=== PATIENT | female | born 1945 | race Caucasian/White ===

== ENCOUNTER → 2016-08-07 | Outpatient (CLI) | payer MEDICARE, OTHER ==
[~2016-08-07] MED LIST: ACEPHEN650 MG RC; ACETAMINOPHEN PO; ACETAMINOPHEN650 M1 PO; ACTOS15 MG PO; ADVAIR 5001 DISK W/D PO; AIRBORNE TABLE1 EAC1 PO; ALBUTEROL MININEB; ALBUTEROL MININEB NEB; ALBUTEROL17 G1 IH; ALBUTEROL2.5 MG/0.5 IH; ALPRAZOLAM ER1 MG PO; ALPRAZOLAM PO; ALPRAZOLAM0.5 MG PO; ALPRAZOLAM1 MG PO; AMITIZA24 MCG PO; ANTIOXIDANT PO; ARICEPT5 M1 PO; ASPIRIN PO; ASPIRIN81 M1 PO; ASPIRIN81 MG PO; ASTELIN137 MCG INH; ASTEPRO205.5 MCG/; ASTEPRO205.5 MCG/ INH; AUGMENTIN PO; AZELASTINE137 MCG/0. INH; AZELASTINE137 MCG/0. NS; BIOTENE1000 ML PO; CALCIUM + VITAM1 TAB PO; CALCIUM 1,0001 EACH PO; CALCIUM 500 +1 EAC2 PO; CALCIUM 600 +1 EAC4 PO; CARAFATE1 G PO; CARAFATE1 GM PO; CELEBREX PO; CENTRUM SILVER PO; CIPRO PO; CLONIDINE HCL0.1 MG PO; CLONIDINE PO; COMBIVENT INH14.7 G1 IH; COMBIVENT U/D3 M2 INH; COMBIVENT U/D3 ML INH; CYANOCOBALAM1000 MCG PO; CYANOCOBALAM1000 MCG PO/SL; DETROL PO; DIFLUCAN100 MG PO; DILAUDID2 MG PO; DILAUDID4 MG PO; DIOVAN HCT 160-1 TAB PO; DIOVAN HCT 160/1 TAB PO; DIOVAN HCT 1601 EACH PO; DIOVAN160 MG PO; DITROPAN PO; DITROPAN5 MG PO; DONEPEZIL HCL10 MG PO; DUONEB 2.5-0.5 M3 ML NEB; ECHINACEA125 M1 PO; EFFEXOR PO; EFFEXOR XR PO; EFFEXOR XR150 MG PO; EFFEXOR-XR150 MG PO; ENABLEX15 MG PO; FAMOTIDINE PO; FERRO-TIME325 MG PO; FISH OIL 1,0001 CAP PO; FISH OIL 1,001000 MG PO; FLEXERIL10 MG PO; FLOMAX0.4 M1 PO; FLOVENT DI50 MCG/DIS IH; GABAPENTIN300 M2 PO; GABAPENTIN300 MG PO; GLUCOTROL XL PO; HUMIBID-LA600 MG PO; HYDROCODON-ACE1 EAC4 PO; HYDROCODON-ACE1 EAC9 PO; KCL PO; KEFLEX250 M3 PO; LANSOPRAZOLE30 M3 PO; LASIX PO; LASIX20 MG PO; LEVAQUIN PO; LEXAPRO; LIDOCAINE TOP; LOPRESSOR PO; LORTAB 7.5-5001 TAB; LORTAB 7.5-5001 TAB PO; MAALOX SUSPENSI30 ML PO; MARINOL2.5 MG PO; MEMANTINE HCL10 MG PO; METFORMIN HCL500 M1 PO; METOPROLOL TAR25 MG PO; METOPROLOL TART25 MG PO; MICONAZOLE TOP; MIRALAX17 G2 PO; MIRALAX17 GM PO; MULTI VITAMIN1 EACH PO; MULTI-DAY VITAM1 TAB PO; MULTIVITAMIN W-1 TAB PO; NAMENDA10 MG PO; NEURONTIN100 MG PO; NEXIUM PO; NEXIUM20 MG PO; NILSTAT PO; NITROFURANTOIN100 M3 PO; NYSTATIN5 ML PO; OMEGA 3 FISH OI1 CAP PO; OMEPRAZOLE20 M2 PO; ONDANSETRON HCL4 M1 PO; ONDANSETRON HCL4 MG PO; ONDANSETRON4 MG/TAB PO; OXYGEN; PEPCID AC20 MG PO; PHENERGAN25 MG PO; PILOCARPINE HC7.5 MG PO; POTASSIUM CHLO10 ME1 PO; POTASSIUM CHLO10 MEQ PO; PRAVASTATIN SOD40 MG PO; PREDNISONE PO; PREDNISONE10 MG PO; PREDNISONE10 MG/DOSE PO; PRILOSEC PO; PRILOSEC20 M1 PO; PROAIR HFA8.5 GM; PROAIR HFA8.5 GM IH; PROTONIX PO; PROVIGIL PO; PROVIGIL100 MG PO; PULMICORT0.25 MG/2; PULMICORT0.25 MG/2 IH; REGLAN PO; REGLAN10 MG PO; SIMVASTATIN10 MG PO; SINGULAIR PO; SPIRIVA18 MCG; SYMBICORT INH; SYMBICORT80 INH; TAMIFLU75 M1 PO; TOPROL XL PO; TOPROL XL200 MG PO; TRAMADOL HCL50 M1 PO; TURMERIC PO; TYLENOL325 M1 PO; VALTURNA 300-321 TAB PO; VENLAFAXINE HC150 M1 PO; VENLAFAXINE HC150 MG PO; VICODIN ES 7.51 EAC1 PO; VICODIN PO; VITAMIN B 12 PO; VITAMIN D3 1,01 EACH PO; VITAMIN D31000 UNIT PO; XANAX0.5 MG PO; ZANTAC; ZITHROMAX PO; ZOFRAN PO; ZOVIRAX15 GM TOP; [UNRECOGNIZED DRUG - OTHER]; [UNRECOGNIZED DRUG - OTHER] PO; [UNRECOGNIZED DRUG - OTHER] PO; [UNRECOGNIZED DRUG - REMARK]; [UNRECOGNIZED DRUG - REMARK] PO
--- NOTE | ~2016-08-07 | XA148 ---
[facility] A Service of [facility] RADIOLOGY TEXT RESULTS PATIENT: BASSAM SORIA LOCATION: CIVR : 45 UNIT #: [id number] AGE: [address]: David Pearson MD SEX: F ORDER DR: [id number] [facility] [address] [facility]. [place], [place] [address] [id number] O MR#: [id number] Acc #: [id number] NAME: BASSAM SROIA. : 1945 SEX: F STUDY DATE/TIME: 08/07/2016 8:29 UNIT: [facility] ROOM: STUDY DESCRIPTION: XA Kyphoplasty Lumbar Attending Physician: David Pearson M.D. Referring Physician: David Pearson M.D. Ordering Physician: David Pearson M.D. Primary Care Physician: Blanca Baumann A.P.R.N. MEDICAL IMAGING REPORT This report is preliminary unless electronic signature is present EXAM Fluoroscopically guided L5 kyphoplasty INDICATION Ms. Soria is a 70-year-old lady who has a history of compression fracture. This was noted on the an MRI from June 25, 2016. She has persistent pain with conservative therapy and in fact has had multiple prior kyphoplasties. She has been referred for kyphoplasty today. FINDINGS The procedure was explained to the patient including risks, benefits, potential complications and potential for alternative forms of treatment. Informed consent was obtained and prior to initiating the procedure a formal time-out procedure was performed. Monitored anesthesia care was induced due to this patient's baseline oxygen requirements. She was placed prone on the angiographic table. Using all elements of maximal sterile barrier technique including hand hygiene, caps, sterile gowns, gloves and masks the back was prepped with 2% Chlorhexidine for cutaneous antisepsis and covered with a large sterile sheet. Initial fluoroscopic image was obtained, and the L5 pedicles were localized. The skin and subcutaneous tissues overlying the left L5 pedicle were anesthetized with buffered lidocaine and bupivacaine. Kyphoplasty cannula was advanced through the left L5 pedicle into the vertebral body under fluoroscopic guidance. At this point I turned my attention to the right pedicle of L5. Again skin and subcutaneous tissues were anesthetized with buffered lidocaine and bupivacaine. An additional cannula was advanced down the right L5 pedicle and into the vertebral body. Final images did show appropriate positioning of the cannulas. Balloons were advanced through the cannulas and were inflated under fluoroscopic guidance. At this point the balloons were removed and cement was applied under fluoroscopic guidance. At this point both cannulas were removed. Manual pressure was applied until hemostasis was obtained. Patient did have some cement extending along the right pedicle along the cannula tract. I do not see [facility]. [facility] A Service of [facility] RADIOLOGY TEXT RESULTS PATIENT: BASSAM SORIA LOCATION: [facility] : 45 UNIT #: [id number] AGE: [address]: David Pearson MD SEX: F ORDER DR: any evidence of contrast extravasation into the disc space or spinal canal. Patient tolerated the procedure well and there were no immediate complications. The patient was awakened from anesthesia and transferred to the recovery area. Total fluoroscopy was 5.6 minutes. AK was 351 mGy. IMPRESSION Technically successful fluoroscopically guided L5 kyphoplasty as noted above. Fluoroscopy was used during the procedure and permanent images were saved. Dictated by... Nova Azul M.D. THIS IS AN ELECTRONICALLY VERIFIED REPORT Nova Azul M.D. at 08/11/2016 4:43 PM DANIELLE/maty TD: 08/11/2016 11:34 JOB #: [id number] MEDICAL IMAGING REPORT COPY
[2016-08-07 07:41] LABS: HEMATOCRIT 33.7 % (35.0-45.0); HEMOGLOBIN 11.2 gm/dL (12.0-16.0); MEAN CELL VOLUME 101.2 FL (83-96); MEAN CORPUSCULAR HEMOGLOBIN 33.5 PG (28-34); MEAN CORPUSCULAR HGB CONC 33.1 g/dL (30-36); MEAN PLATELET VOLUME 7.5 FL (6.5-11.5); RED BLOOD COUNT 3.33 X10e (3.90-5.30); RED CELL DISTRIBUTION WIDTH 12.7 % (11.0-15.5); WHITE BLOOD COUNT 7.7 X10e3 (4.0-10.5)
[2016-08-07 08:02] LABS: PROTHROMBIN TIME (PATIENT) 10.3 SECONDS (9.6-11.5)
== END | disposition home or self-care (01) ==
LOC: CIVR 07:08
PROVIDERS: Orthopaedic Surgery Orthopaedic Surgery of the Spine
DX: M80.88XA Other osteoporosis with current pathological fracture, vertebra(e), initial encounter for fracture (principal); J44.9 Chronic obstructive pulmonary disease, unspecified; Z99.81 Dependence on supplemental oxygen; K21.9 Gastro-esophageal reflux disease without esophagitis; E03.9 Hypothyroidism, unspecified; I50.9 Heart failure, unspecified; N39.3 Stress incontinence (female) (male); J45.909 Unspecified asthma, uncomplicated; Z85.118 Personal history of other malignant neoplasm of bronchus and lung; F17.200 Nicotine dependence, unspecified, uncomplicated
CPT/HCPCS: 36415; 85027; 85610; 85730; 88307; 88311; C1713; J0690; J2250; J3010; Q9967

== ENCOUNTER → 2016-09-01 | Outpatient (CLI) | payer MEDICARE, OTHER ==
--- NOTE | ~2016-09-01 | CT55 ---
[facility] A Service of [facility] RADIOLOGY TEXT RESULTS PATIENT: BASSAM SORIA LOCATION: [facility] : 45 UNIT #: [id number] AGE: [address]: Ryan Soria MD SEX: F ORDER DR: [id number] [address] [address] [id number] O MR#: [id number] Acc #: [id number] NAME: BASSAM SORIA : 1945 SEX: F STUDY DATE/TIME: 09/01/2016 11:48 UNIT: [facility] ROOM: STUDY DESCRIPTION: CT Chest W Con Attending Physician: Ryan Soria M.D. Referring Physician: Ryan Soria M.D. Ordering Physician: Ryan Soria M.D. Primary Care Physician: Blanca Baumann A.P.R.N. MEDICAL IMAGING REPORT This report is preliminary unless electronic signature is present. EXAM CT of the chest with contrast INDICATION 70-year-old female with followup lung cancer. TECHNIQUE CT of the chest was performed following the administration of IV contrast. Coronal and sagittal reformatted images were obtained. This CT exam was performed with one or more of the following radiation dose reduction techniques: automatic exposure control, adjustment of mA and/or kV according to patient size, and iterative reconstruction. COMPARISON 04/14/2016 FINDINGS Stable curvilinear densities in the left apex. Stable scarring in the medial left upper lobe adjacent to the mediastinum. Stable scarring in the right upper lobe. There is a 1.1 cm ground-glass rounded density in the left lower lobe on image 30 which has demonstrated some increase in size compared with the previous study. This is nonspecific however should be followed closely. There is some increased thickening of the mid esophagus. This is nonspecific. If the patient has received radiation therapy this may represent esophagitis. No pleural effusion or suspicious lymphadenopathy. Limited imaging of the upper abdomen is stable. Bone windows demonstrate prior vertebral augmentations. Stable sclerotic metastatic disease in T6. IMPRESSION 1. Stable presumed scarring in the left upper lobe. 2. There is a small 1.1 cm rounded ground-glass density in the left STS. [facility] A Service of [facility] RADIOLOGY TEXT RESULTS PATIENT: BASSAM SORIA LOCATION: [facility] : 45 UNIT #: [id number] AGE: [address]: Ryan Soria MD SEX: F ORDER DR: lower lobe which appears to be a slightly increased in size compared from the previous studies. Attention to this is recommended on followup studies and this should be followed closely given the patient's history of lung cancer. 3. There is increased thickening of the mid esophagus. This is nonspecific but if the patient has received radiation therapy. This could be due to radiation esophagitis. Dictated by... Huey Julio M.D. THIS IS AN ELECTRONICALLY VERIFIED REPORT Huey Julio M.D. at 09/02/2016 4:28 PM Qamar TD: 09/02/2016 09:30 JOB #: [id number] MEDICAL IMAGING REPORT Page 1 of 1
[2016-09-01 11:51] LABS: POC - CREATININE 0.86 mg/dL (0.44-1.03); POC - GFR >60.0 mL/min (>60)
== END | disposition home or self-care (01) ==
LOC: SCT 11:25
PROVIDERS: Internal Medicine Hematology
DX: C34.90 Malignant neoplasm of unspecified part of unspecified bronchus or lung (principal); M81.8 Other osteoporosis without current pathological fracture; J98.4 Other disorders of lung; K22.8 Other specified diseases of esophagus
CPT/HCPCS: 71260; 82565; Q9967

== ENCOUNTER → 2016-11-10 | Outpatient (CLI) | payer MEDICARE, OTHER ==
--- NOTE | ~2016-11-10 | CT55 ---
[facility] A Service of [facility] RADIOLOGY TEXT RESULTS PATIENT: BASSAM SORIA LOCATION: [facility] : 45 UNIT #: [id number] AGE: [address]: Ryan Soria MD SEX: F ORDER DR: [id number] [address] [address] [id number] O MR#: [id number] Acc #: [id number] NAME: BASSAM SORIA. : 1945 SEX: F STUDY DATE/TIME: 11/10/2016 13:33 UNIT: [facility] ROOM: STUDY DESCRIPTION: CT Chest W Con Attending Physician: Ryan Soria M.D. Referring Physician: Ryan Soria M.D. Ordering Physician: Ryan Soria M.D. Primary Care Physician: Blanca Baumann A.P.R.N. MEDICAL IMAGING REPORT This report is preliminary unless electronic signature is present. EXAM CT chest with contrast DATE 11/10/2016 HISTORY Physician's order states malignant neoplasm of unspecified bronchus or lung, other osteoporosis. Patient's history states 3-month followup spot on lung. Left lower quadrant abdominal pain for years. COMPARISON CT chest 08/12/2016. PROCEDURE 5 mm axial images through the chest after IV contrast administration. Sagittal and coronal reformatted images were obtained. This CT exam was performed with one or more of the following radiation dose reduction techniques: automatic control, adjustment of mA and/or kV according to patient size, and iterative reconstruction. FINDINGS Paramediastinal fibrosis with traction bronchiectasis demonstrated in the bilateral upper lobes and within the superior left lower lobe, with pleural thickening in the superior medial left mid chest, unchanged from prior examination. This may represent sequelae of previous radiation therapy. There is curvilinear scarring in the anterior left apex, unchanged. Bilobed ground-glass nodular density in the left lower lobe, each component measuring up to 1.1 cm, unchanged from the 09/01/2016, but larger than on the 08/05/2015 examination where the more cephalad component measured only 9 mm, and the inferior component measured 8 mm. Approximately 7 mm noncalcified nodular density in the superior right lower lobe medially (series 7 image 22) is unchanged from the prior STS. [facility] A Service of [facility] & [facility] RADIOLOGY TEXT RESULTS PATIENT: BASSAM SORIA LOCATION: [facility] : 45 UNIT #: [id number] AGE: [address]: Ryan Soria MD SEX: F ORDER DR: examination but is a new finding since 08/05/2015. Heterogeneous 2 cm left thyroid nodule is unchanged from 09/30/2015. It has substernal extension of the superior mediastinum, unchanged. There is mild concentric thickening in the mid thoracic esophagus which is unchanged from previous examination, could represent changes related to radiation esophagitis. Small esophageal hiatal hernia is demonstrated. Low-density lesion in the upper splenic pole measures nearly 2.4 cm is unchanged from 09/30/2015, in keeping with benign finding such as a cyst or hemangioma. Incompletely imaged low-density lesion in the posterolateral right [id number]-tl-owsbh renal pole (Hounsfield units 11.5) measuring 1.6 cm, compatible with a cyst. Adrenal glands appear normal. Old compression fractures of T8, L2 and L3 with vertebroplasty change. Chronic sclerosis of the T6 vertebral body likely representing site of previous metastatic disease, unchanged. Multiple old left rib fractures. No new osseous abnormalities are identified. IMPRESSION 1. A 7 mm nodule is located superiorly within the right lower lobe, which only faintly be seen on 08/31/2016, but is a new finding since April 2016. Metastatic disease cannot be excluded. It is too small to resolve with a PET technique and too small for percutaneous biopsy. Continued short-term CT chest followup would be recommended. 2. Curvilinear area of scarring in the anterior left lung apex thought to represent site of previous treated disease, stable. 3. Paramediastinal fibrosis changes in the bilateral upper lobes and left lower lobe, unchanged. 4. Bilobed ground-glass density in the central left lower lobe is unchanged from previous examination. However, it has slowly and gradually enlarged when compared to the more remote studies from 08/05/2015. As such, pulmonary metastatic disease cannot be completely excluded. Continued attention at surveillance imaging would be recommended. 5. Concentric thickening in the mid thoracic esophagus. Correlate clinically for radiation esophagitis. 6. Stable low-density left thyroid nodule. 7. Thoracic compression deformities, unchanged. Sclerotic features in T6 vertebral body unchanged from prior examination is consistent with previous site of osseous metastatic disease. No new osseous lesions. 8. Splenic cyst or hemangioma, right renal cyst, unchanged. Dictated by... Mindy Jimenez M.D. THIS IS AN ELECTRONICALLY VERIFIED REPORT Mindy Jimenez M.D. at 11/13/2016 8:39 AM [facility] A Service of [facility] RADIOLOGY TEXT RESULTS PATIENT: BASSAM SORIA LOCATION: [facility] : 45 UNIT #: [id number] AGE: [address]: Ryan Soria MD SEX: F ORDER DR: WILIAM/justine TD: 11/11/2016 19:55 JOB #: [id number] MEDICAL IMAGING REPORT Page 1 of 1
--- NOTE | ~2016-11-10 | CR7 ---
[facility] A Service of [facility] RADIOLOGY TEXT RESULTS PATIENT: BASSAM SORIA LOCATION: [facility] : 45 UNIT #: [id number] AGE: [address]: Ryan Soria MD SEX: F ORDER DR: [id number] [place] [address] [id number] O MR#: [id number] Acc #: [id number] NAME: BASSAM SORIA. : 1945 SEX: F STUDY DATE/TIME: 11/10/2016 13:23 UNIT: [facility] ROOM: STUDY DESCRIPTION: CR Abdomen Single AP View Attending Physician: Ryan Soria M.D. Referring Physician: Ryan Soria M.D. Ordering Physician: Ryan Soria M.D. Primary Care Physician: Blanca Baumann A.P.R.N. MEDICAL IMAGING REPORT This report is preliminary unless electronic signature is present. EXAM Abdomen, 11/10/2016 13:23 hours HISTORY 70-year-old woman with left lower quadrant abdominal pain for several years. COMPARISON CT abdomen, 04/14/2016 FINDINGS Supine view of the abdomen and cone view of the pelvis demonstrate a nonspecific bowel gas pattern without evidence of obstruction. There is diffuse osteopenia with kyphoplasty change at L2, L3, L4 and L5. There is hardware present in the left proximal femur. No definite fracture. IMPRESSION 1. Nonspecific bowel gas pattern with moderate amount of stool. 2. Multilevel kyphoplasty changes with profound, diffuse osteopenia. No acute fracture seen. Dictated by... Radha Medina M.D. THIS IS AN ELECTRONICALLY VERIFIED REPORT Radha Medina M.D. at 11/11/2016 5:50 PM John TD: 11/11/2016 15:00 JOB #: [id number] MEDICAL IMAGING REPORT [facility] A Service of [facility] RADIOLOGY TEXT RESULTS PATIENT: BASSAM SORIA LOCATION: [facility] #: [id number] : 45 UNIT #: [id number] AGE: [address]: Ryan Soria MD SEX: F ORDER DR: Page 1 of 1
[2016-11-10 13:35] LABS: POC - GFR >60.0 mL/min (>60)
== END | disposition home or self-care (01) ==
LOC: SCT 07:31
PROVIDERS: Internal Medicine Hematology
DX: C34.90 Malignant neoplasm of unspecified part of unspecified bronchus or lung (principal); M81.8 Other osteoporosis without current pathological fracture; M85.88 Other specified disorders of bone density and structure, other site; R91.1 Solitary pulmonary nodule; J98.4 Other disorders of lung; N28.1 Cyst of kidney, acquired; M43.9 Deforming dorsopathy, unspecified; Z98.890 Other specified postprocedural states
CPT/HCPCS: 71260; 74000; 82565; Q9967

== ENCOUNTER 2017-01-14 20:02 | Inpatient (IN) | payer MEDICARE, OTHER ==
[~2017-01-14] VITALS: Ht 144.8 cm; Wt 65.5 kg
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
--- NOTE | ~2017-01-14 | EKG ---
PATIENT: BASSAM SORIA UNIT #: [id number] Ventricular Rate: 104 BPM Atrial Rate: 104 BPM P-R Interval: 188 ms QRS Duration: 92 ms Q-T Interval: 352 ms QTC Calculation(Bezet): 462 ms P [place]: 79 degrees Calculated R [place]: 77 degrees Calculated T [place]: 79 degrees Diagnosis Line: Sinus tachycardia Diagnosis Line: Otherwise normal ECG Diagnosis Line: No previous ECGs available Diagnosis Line: Confirmed by ALEX DOWNEY MD ([id number]) on 01/15/2017 Diagnosis Line: 4:52:03 PM INTERPRETING MD: SHAYAN AMAYA
--- NOTE | ~2017-01-14 | CR72 ---
[facility] A Service of [facility] RADIOLOGY TEXT RESULTS PATIENT: BASSAM SORIA LOCATION: [facility] 338-01 : 45 UNIT #: [id number] AGE: [address]: Prince Muhammad MD SEX: F ORDER DR: [id number] [facility] [address] [facility]. [place], [place] [address] [id number] I MR#: [id number] Acc #: [id number] NAME: BASSAM SORIA. : 1945 SEX: F STUDY DATE/TIME: 01/14/2017 20:49 UNIT: [address] ROOM: [facility] STUDY DESCRIPTION: CR Chest Single View Portable Attending Physician: Prince Muhammad M.D. Ordering Physician: Killian Guzmán M.D. Primary Care Physician: Blanca Baumann A.P.R.N. MEDICAL IMAGING REPORT This report is preliminary unless electronic signature is present EXAM Frontal chest, 01/14/2017 INDICATION 71-year-old female with altered mental status, weakness, short of air with activity. Symptoms began 4 days ago. History of COPD, hypertension and lung cancer. TECHNIQUE Frontal chest compared with scanogram of CT performed 11/10/2016 and prior chest x-ray 07/18/2016. FINDINGS Aorta is tortuous. Cardiac silhouette is stable. Vascularity within normal limits. Lung volumes are low. There is old healed granulomatous disease. There is chronic appearing fibrosis and scarring in the suprahilar aspects of the lungs bilaterally, left greater than right. Underlying emphysema. No pneumothorax. There is evidence of prior vertebroplasty/kyphoplasty changes. IMPRESSION Chronic appearing lung changes. No definite superimposed active disease. Dictated by... Venkatesh Cote M.D. THIS IS AN ELECTRONICALLY VERIFIED REPORT Venkatesh Cote M.D. at 01/15/2017 11:28 AM JAVIER/tracy TD: 01/15/2017 03:41 [facility] A Service of [facility] RADIOLOGY TEXT RESULTS PATIENT: BASSAM SORIA LOCATION: [facility] 338-01 : 45 UNIT #: [id number] AGE: [address]: Prince Muhammad MD SEX: F ORDER DR: MERT #: [id number] MEDICAL IMAGING REPORT Page 1 of 1 COPY
--- NOTE | ~2017-01-14 | CT71 ---
[facility] A Service of [facility] RADIOLOGY TEXT RESULTS PATIENT: BASSAM SORIA LOCATION: [facility] : 45 UNIT #: [id number] AGE: [address]: Prince Muhammad MD SEX: F ORDER DR: [id number] [facility] [address] [facility]. [place], [place] [address] [id number] I MR#: [id number] Acc #: [id number] NAME: BASSAM SORIA. : 1945 SEX: F STUDY DATE/TIME: 01/14/2017 21:47 UNIT: [address] ROOM: [address] [place] [address] DESCRIPTION: CT Head Wo Contrast Attending Physician: Prince Muhammad M.D. Ordering Physician: Killian Guzmán M.D. Primary Care Physician: Blanca Baumann A.P.R.N. MEDICAL IMAGING REPORT This report is preliminary unless electronic signature is present EXAM Head CT, no contrast, 01/14/2017 PROCEDURE Axial unenhanced head CT. This CT exam was performed with one or more of the following radiation dose reduction techniques: automatic exposure control, adjustment of mA and/or kV according to patient size, and iterative reconstruction. COMPARISON Prior exam dated 01/06/2015. CLINICAL HISTORY One-day history of increasing confusion FINDINGS There is no intracranial hemorrhage or mass. There is volume loss and chronic white matter change, both increased when compared to the prior study. No acute intracranial abnormality is seen. Skull base and calvarium are unremarkable. IMPRESSION Chronic small vessel change and volume loss, showing progression since the study of 01/07/2012. However, no acute intracranial abnormality is seen. Dictated by... Lakhwinder Martinez M.D. THIS IS AN ELECTRONICALLY VERIFIED REPORT Lakhwinder Martinez M.D. at 01/22/2017 4:55 PM [facility] A Service [facility] RADIOLOGY TEXT RESULTS PATIENT: BASSAM SORIA LOCATION: [facility] 338 : 45 UNIT #: [id number] AGE: [address]: Prince Muhammad MD SEX: F ORDER DR: LAMONT/tracy TD: 01/15/2017 04:37 JOB #: [id number] MEDICAL IMAGING REPORT Page 1 of 1 COPY
--- NOTE | ~2017-01-14 | MR17 ---
[facility] A Service of [facility] RADIOLOGY TEXT RESULTS PATIENT: BASSAM SORIA LOCATION: [facility] 338-01 : 45 UNIT #: [id number] AGE: [address]: Prince Muhammad MD SEX: F ORDER DR: [id number] [facility] [address] [place], [place] [address] [id number] I MR#: [id number] #: [id number] NAME: BASSAM SORIA. : 1945 SEX: F STUDY DATE/TIME: 01/15/2017 17:59 UNIT: [address] ROOM: [facility] STUDY DESCRIPTION: MR Brain WWo Contrast Attending Physician: Prince Muhammad M.D. Ordering Physician: Betito Medina M.D. Primary Care Physician: Blanca Baumann A.P.R.N. MRI CENTER REPORT This report is preliminary unless electronic signature is present. EXAM Brain MRI with and without. HISTORY Increased confusion and weakness in this 71-year-old female since 01/14/2017. She has had headaches for 6 months with changes in mental status off and on and has a known history of lung cancer. COMMENTS MRI of the brain was performed prior to and following intravenous administration of 12 mL of MultiHance. Study is limited by patient motion and motion limiting sequences were utilized. There is comparison study from 05/03/2016. Midline structures are unremarkable. There is no evidence for a recent ischemic insult on the diffusion series. There is fairly extensive white matter signal abnormality most confluent in the deep periventricular white matter nonspecific, but likely due to small vessel disease. Lacunar type insults at the posterior left basal ganglia to bilateral thalami, chronic in appearance. Patchy signal abnormality in the bonilla. It is nonspecific, likely due to small vessel disease, also chronic in appearance. There is no extraaxial fluid collection. The major arterial intracranial flow voids are grossly maintained. Patient has had cataract surgery bilaterally. The visualized paranasal sinuses are clear. There is a small amount of fluid or inflammatory change in the right side mastoid air cells. There is mild generalized atrophy. There is no intracranial mass effect. Following contrast administration, there is no pathologic intracranial enhancement. IMPRESSION 1. Study is motion limited. 2. No evidence for intracranial metastatic disease. 3. No evidence for a recent ischemic insult. [facility] A Service of [facility] RADIOLOGY TEXT RESULTS PATIENT: BASSAM SORIA LOCATION: [facility] 338-01 : 45 UNIT #: [id number] AGE: [address]: Prince Muhammad MD SEX: F ORDER DR: 4. Again there is fairly extensive probable sequelae of small vessel disease and some generalized atrophy. Findings not appreciably changed from 05/03/2016. Preliminary wet reading provided by Dr. Jimenez, 18:50 on 01/15/2017. STAT * RESULT Dictated by... Larissa Rucker M.D. THIS IS AN ELECTRONICALLY VERIFIED REPORT Larissa Rucker M.D. at 01/16/2017 2:46 PM JOSIANE/shae TD: 01/16/2017 07:57 JOB #: [id number] MRI CENTER REPORT Page 1 of 1 COPY
--- NOTE | ~2017-01-14 | DS ---
Unit #: [id number] #: [id number] Patient: BASSAM SORIA [id number] [address] [address] [id number] I MR#: [id number] NAME: BASSAM SORIA. ROOM: 338 Age: 71 Sex: F Admission Date: 01/14/2017 : 1945 Discharge Date: 01/20/2017 Attending Physician: Prince Muhammad M.D. Primary Care Physician: Blanca Baumann A.P.R.N. DISCHARGE SUMMARY PRINCIPAL DISCHARGE DIAGNOSES 1. Acute diverticulitis. 2. Acute delirium. 3. Dementia. 4. Chronic obstructive pulmonary disease. 5. Hypertension. 6. Sinus tachycardia. 7. Type 2 diabetes mellitus. 8. Obstructive sleep apnea syndrome. 9. Overactive bladder. 10. Osteoporosis. 11. History of irritable bowel syndrome. 12. Coronary artery disease. 13. Major depressive disorder. 14. Gastroesophageal reflux disease. 15. History of small cell cancer of the lung. 16. Peripheral neuropathy. 17. Status post appendectomy. 18. Status post abdominal hernia repair. PROCEDURES PERFORMED None. CONSULTANTS Dr. Medina from neurology. Dr. Drake from [facility]. REASON FOR HOSPITALIZATION The patient is a 71-year-old white female with an extensive past medical history, chronic obstructive pulmonary disease, lung cancer, hypertension, tobacco use, type 2 diabetes mellitus, obstructive sleep apnea syndrome, overactive bladder, osteoporosis, irritable bowel syndrome, coronary artery disease, depression. She presented to the emergency room with hallucinations, mental status changes, lower abdominal pain, family suspecting urinary tract infection. On admission she was afebrile, tachycardic and blood pressure was somewhat low on admission. O2 saturations were good on 4 liters, which is her home dose. Random blood sugar was 167. CBC was normal except for hemoglobin of 11.4. CMP was normal except for a CO2 of 38 and random blood sugar 185. Alkaline phosphatase was 98, lactic acid was 1.7 and 0.8 on repeat. Cardiac enzymes normal. Urinalysis clear. Chest x-ray no active disease. CT scan of the head no active disease. CT scan of the abdomen acute diverticulitis. Sigmoid colon without complications, i.e. no perforation or abscess formation. Unit #: [id number] #: [id number] Patient: BASSAM SORIA [facility] COURSE The patient was admitted and placed on IV fluids, IV antibiotics and surgery and neurology were consulted. Accu-Cheks were obtained. Low-dose sliding scale insulin was instituted. Changes were made in her medications because of the confusion. Her clonidine was held because of low blood pressure and was eventually resumed. Her gabapentin was discontinued. She rapidly improved from the stand of diverticulitis as well as her confusion. Apparently she had run out of Xanax at home and could not get to the office to get it refilled. This was resumed while she was here. Additional labs were sent for confusion, mental status changes. Ammonia level was normal. PFTs were within normal limits. B12 and folic acid levels were within normal limits. ABGs on 4 liters showed a pH of 7.457, pCO2 of 49 and a PaO2 of 127. The patient's family approached us with senior care placement. Apparently she has a place at [facility]. They have been looking at [facility] as well. She will be discharged on O2 at 4 liters nasal cannula continuously. DIET Constant carb, healthy-heart diet. DISCHARGE MEDICATIONS 1. Flomax 0.4 mg at nighttime. 2. Lovenox 40 mg subcutaneous daily. 3. Effexor XR 150 mg daily. 4. Zofran 4 mg p.o. q.4 h. p.r.n. nausea. 5. Xanax 0.5 mg p.o. b.i.d. p.r.n. anxiety. 6. Dulera 200/5 two puffs q.12 h. 7. Lopressor 75 mg p.o. b.i.d. 8. Colace 100 mg p.o. b.i.d. 9. Namenda 10 mg p.o. b.i.d. 10. Aricept 10 mg p.o. at nighttime. 11. Ceclor 250 mg p.o. q.8 h. for an additional 4 days. 12. Furosemide 20 mg daily. 13. Astelin nasal spray b.i.d. 14. Zocor 10 mg at nighttime. 15. Catapres 2 mg p.o. t.i.d. 16. Medium dose NovoLog sliding scale. 17. Flagyl 500 mg p.o. t.i.d. for an additional 4 days. 18. Multivitamins 1 daily. 19. Protonix 40 mg b.i.d. 20. Os-Dontae 1 p.o. b.i.d. 21. KCL 20 mEq p.o. b.i.d. Dictated by... Prince Muhammad M.D. BELINDAK/suleman TD: 01/20/2017 08:32 JOB #: [id number] Unit #: [id number] #: [id number] Patient: BASSAM SORIA DISCHARGE SUMMARY Page 1 of 1 X Prince Muhammad MD X DISCHARGE SUMMARY
--- NOTE | ~2017-01-14 | CO ---
Unit #: [id number] #: [id number] Patient: BASSAM SORIA [id number] [facility] [address] [place] [address] [place], [place] [address] [id number] I MR#: [id number] NAME: BASSAM SORIA. ROOM: 338 Age: 71 Sex: F Admission Date: 01/14/2017 : 1945 Attending Physician: Prince Muhammad M.D. Primary Care Physician: Blanca Baumann A.P.R.N. CONSULTATION REPORT PRIMARY CARE PHYSICIAN Blanca Baumann A.P.R.N. REASON FOR CONSULTATION Mental status changes. PATIENT IDENTIFICATION This is a 71-year-old right handed female, evaluated in room 338 at [facility]. SOURCE OF INFORMATION Obtained from the patient as well as medical record. HISTORY OF PRESENT ILLNESS This is a 71-year-old right handed female with a past medical history of diabetes mellitus type 2, dementia, COPD, obstructive sleep apnea, and small cell lung cancer, who presented to [facility] with altered mental status, hallucinations, and abdominal pain. She was admitted for acute diverticulitis. Neurology was asked to further evaluate for mental status changes and hallucinations. Review of systems was attempted with the patient; however, she is not fully oriented and she is a poor historian. She is oriented to person and place, but not oriented to time. She can give some information to why she is here, but I am unsure how reliable she is. She does complain of some abdominal pain. Reports that she gets lightheaded when she stands, but she reports that it has been ongoing for a long time. The abdominal pain is relatively new; however, the patient cannot quantify the duration. She had a CT of the abdomen and pelvis checked in the ER during her presentation, which shows short segment of acute diverticulitis at the junction of the distal descending and proximal sigmoid colon with no abscess . The patient does not recall having any hallucination. She admits that she may have been a little bit confused yesterday, but again she is still not fully oriented and not the best historian and uncertain of what her baseline mental status is. She has a documented history of dementia. She states she lives with family. She was seen by Neurology in 2015 for altered mental status felt to be medication related. Her mental status at that time was documented as being oriented, again uncertain of what her baseline is prior to this arrival. She does have a documentation or given history of dementia. She is not experiencing any hallucinations. She does appear to understand that she is at [facility] and that she is here for abdominal pain and confusion. Unit #: [id number] #: [id number] Patient: BASSAM SORIA PAST MEDICAL HISTORY 1. CAD. 2. Hypertension. 3. Dementia. 4. COPD. 5. Obstructive sleep apnea. 6. Small-cell lung cancer in the left lung with recurrence on the right. 7. GERD. 8. Depression. 9. Diabetes mellitus type 2. 10. Osteoporosis. 11. Tobacco abuse. 12. History of C diff. 13. Overactive bladder. 14. Irritable bowel syndrome. 15. Presbyesophagus. 16. Diverticulosis. 17. Appendectomy. 18. Tonsillectomy. 19. Abdominal hernia repair. 20. Back surgery x2. 21. Hypertension. 22. Depression. 23. She has a history of her chemotherapy as well as radiation for her lung cancer with history of changes in the brain secondary to primary cranial radiation in the past. FAMILY HISTORY Noncontributory. SOCIAL HISTORY She smokes one pack of cigarettes per day. No known alcohol use or abuse or illicit drug use. ALLERGIES Oxycodone, morphine, OxyContin. HOME MEDICATIONS As per med rec include; Effexor XR, gabapentin, alprazolam, potassium chloride ER, donepezil, memantine, clonidine, tamsulosin, calcium, multivitamin, simvastatin, Protonix, Symbicort, azelastine. REVIEW OF SYSTEMS 14-point review of systems was done. Pertinent positives are as discussed above. The patient is a poor historian. PHYSICAL EXAMINATION VITAL SIGNS: Temperature 99.3, pulse 120, respirations 18, blood pressure 147/98, oxygen saturation 100%, height 4 feet 9 inches, weight 132 pounds, BMI 28. NEUROLOGIC: The patient is awake. She is resting in bed comfortably, in no apparent distress. She is alert. She is oriented and calm. She is only oriented to person and place, however she believes it is . She believes it is 2009. She is unable to tell me the month. She can name and identify and follow simple commands. She has no right or left confusion. No finger agnosia. She has no aphasia or dysarthria on exam. Cranial nerve exam, she demonstrates full esposito of vision. Eyes are Unit #: [id number] #: [id number] Patient: BASSAM SORIA conjugate without ptosis or nystagmus. Extraocular movements are intact. Sensation of face and scalp is intact. Strength of muscle of facial expression is intact. Hearing is intact to conversation. Tongue is midline. Uvula is midline. Palate elevation is normal. Head turning and shoulder shrug are unremarkable. Neck is supple. Motor exam, she demonstrates normal bulk. She has cogwheeling rigidity in bilateral upper extremities. She has a tremor in the bilateral upper extremities at rest worse on the right compared to the left, worse with movement and at rest. Strength is equal; however, extremities. Sensory exam intact, but decreased sensation in the lower extremities distally compared to proximally. Gait and Romberg deferred. Reflexes, unable to elicit. Toes are equivocal. Coordination, she is quite tremulous, but she has no past-pointing on exam. DIAGNOSTIC STUDIES IMAGING STUDIES: CT of head without contrast on 01/06/2017; impression per Radiology report; 1. Chronic small vessel change and volume loss. Some progression since 01/06/2017; however, no acute intracranial abnormality seen. It looked however though that she had a CT scan done in 07/2016 here, which showed atrophy and chronic small vessel changes, remote lacunar infarct in left basal ganglia . CT of the abdomen and pelvis as discussed above. Chest x-ray on 01/14/2017; impression per Radiology report; 1. Chronic appearing lung changes, but no definite superimposed active disease. LABORATORY RESULTS: B12 715, folate greater than 23.3. TSH 0.99. Ammonia 17. Lactic acid 0.8. Sodium 141, potassium 3.5, chloride 95, CO2 of 39, glucose 151, BUN 9, creatinine 0.7, estimated GFR 87.2, calcium 8.5. White blood cell count 5.2, hemoglobin 11.1, hematocrit 33, platelet count 297. Urinalysis unremarkable. Initial white blood cell count 5.9. Initial lactic acid 1.7. IMPRESSION 1. Hallucinations, resolved. 2. Altered mental status. Consider possible metabolic encephalopathy on top of dementia. 3. Dementia. 4. Acute diverticulitis. 5. Questionable parkinsonism. 6. Chronic obstructive pulmonary disease. 7. History of small cell lung cancer. PLAN The patient is significantly improved. She is nonfocal regarding concern for an acute primary neurologic event. She does have some parkinsonian features, some bradykinesia on exam, but appears to be chronic rather recommend further outpatient evaluation for that. I have discussed with Dr. Medina regarding the need for possible further imaging. Again, she is nonfocal for new finding likely this could be a metabolic encephalopathy given her history of small cell lung cancer. We will recommend MRI of the brain to further evaluate. If negative, we will observe. Further recommendations pending workup and further clinical course. We thank you very much for allowing us to assist in care of this patient. Unit #: [id number] #: [id number] Patient: BASSAM SORIA Dictated by... Kajal Ling A.P.R.N. for Tanya Small/jevon TD: 01/16/2017 13:12 JOB #: [id number] CONSULTATION REPORT Page 1 of 1 X Kajal Ling INSTRUCTOR PHYSICAL X CONSULTATION REPORT
--- NOTE | ~2017-01-14 | CT2 ---
[facility] A Service of [facility] RADIOLOGY TEXT RESULTS PATIENT: BASSAM SORIA LOCATION: [facility] 338-01 : 45 UNIT #: [id number] AGE: [address]: Prince Muhammad MD SEX: F ORDER DR: [id number] [facility] [address] [place], [place] [address] [id number] I MR#: [id number] Acc #: [id number] NAME: BASSAM SORIA. : 1945 SEX: F STUDY DATE/TIME: 01/14/2017 21:49 [facility] ROOM: [facility] STUDY DESCRIPTION: CT Abd and Pelv W Cont Attending Physician: Prince Muhammad M.D. Ordering Physician: Killian Guzmán M.D. Primary Care Physician: Blanca Baumann A.P.R.N. MEDICAL IMAGING REPORT This report is preliminary unless electronic signature is present EXAM Abdomen and pelvis CT with contrast, 01/14/2017. INDICATIONS 71-year-old female with a history of increasing confusion, weakness and dysuria today. History of lung cancer. Multiple surgeries including appendectomy. TECHNIQUE Contrast enhanced CT of the abdomen and pelvis was performed and compared with 11/08/2015. This CT exam was performed with one or more of the following radiation dose reduction techniques: automatic exposure control, adjustment of mA and/or kV according to patient size, and iterative reconstruction. FINDINGS CT ABDOMEN Included lung bases clear. No effusion. There is a moderate-sized hiatal hernia. Aorta demonstrates atherosclerotic change and ectasia, but no distinct aneurysm or dissection. Probable hemangioma in the dome of the spleen unchanged. Adrenal glands normal. Pancreas unremarkable. There is uncomplicated cholelithiasis. Liver demonstrates a benign cyst in the left hepatic lobe unchanged. Kidneys nonobstructed. There is a mid pole renal cyst on the right, unchanged. CT PELVIS Bladder unremarkable. Uterus surgically absent. No drainable fluid collection in the pelvis or adnexal mass. There is diverticulosis of the colon. At the junction of the distal descending and proximal sigmoid colon, there is short-segment inflammatory change most characteristic of diverticulitis. There is no associated abscess, free air or bowel STS. [facility] A Service of [facility] RADIOLOGY TEXT RESULTS PATIENT: BASSAM SORIA LOCATION: [facility] 338-01 : 45 UNIT #: [id number] AGE: [address]: Prince Muhammad MD SEX: F ORDER DR: obstruction at this time. The patient has had a prior anterior abdominal wall hernia repair. The appendix is surgically absent. The patient is status post left hip fracture repair. Degenerative change in the thoracolumbar spine. Vertebroplasty changes at L5, L4, L3 and L2. The changes at L5 are new compared to the prior study. There is a metallic appearing linear density intimately associated with the L5 pedicle on the right. This may reflect retention of an introducer device related to the prior vertebroplasty and should be correlated clinically. IMPRESSION 1. There is short-segment acute diverticulitis at the junction of the distal descending and proximal sigmoid colon. No abscess, free air or bowel obstruction at this time. 2. Uncomplicated cholelithiasis. 3. Hepatic and renal cysts. 4. Surgical absence of the appendix and uterus and postop changes of the left hip. 5. Vertebroplasty changes in the lumbar spine. The L5 vertebroplasty changes are new compared to the prior study. There is a metallic probable introducer device that remains associated with the right L5 pedicle. Correlate with physical exam and history in this regard. Dictated by... Venkatesh Cote M.D. THIS IS AN ELECTRONICALLY VERIFIED REPORT Venkatesh Cote M.D. at 01/15/2017 11:29 AM Kala TD: 01/15/2017 08:08 JOB #: [id number] MEDICAL IMAGING REPORT Page 1 of 1 COPY
[~2017-01-14 20:02] MED LIST changes: -AZELASTINE137 MCG/0. INH; -CALCIUM 1,0001 EACH PO; -CLONIDINE PO; -DONEPEZIL HCL10 MG PO; -GABAPENTIN300 M2 PO; -MEMANTINE HCL10 MG PO; -POTASSIUM CHLO10 MEQ PO
[2017-01-14 21:01] LABS: BASOPHIL% 0.3 % (0-2.5); EOSINOPHIL% 0.8 % (0.0-7.0); HEMATOCRIT 35.1 % (35.0-45.0); HEMOGLOBIN 11.4 gm/dL (12.0-16.0); LYMPHOCYTE# 0.9 X10e3 (1.0-3.5); LYMPHOCYTE% 14.8 % (17.0-45.0); MEAN CELL VOLUME 99.8 FL (83-96); MEAN CORPUSCULAR HEMOGLOBIN 32.4 PG (28-34); MEAN CORPUSCULAR HGB CONC 32.5 g/dL (30-36); MEAN PLATELET VOLUME 7.9 FL (6.5-11.5); MONOCYTE# 0.5 X10e3 (0-1.0); MONOCYTE% 9.1 % (3.0-12.0); NEUTROPHIL# 4.5 X10e3 (1.5-7.1); PLATELET COUNT 343 X10e3 (140-420); RED BLOOD COUNT 3.52 X10e (3.90-5.30); RED CELL DISTRIBUTION WIDTH 12.4 % (11.0-15.5); WHITE BLOOD COUNT 5.9 X10e3 (4.0-10.5)
[2017-01-14 21:03] LABS: DIFF IND NO
[2017-01-14 21:20] LABS: ALBUMIN SERUM 3.5 g/dL (3.5-5.0); BILIRUBIN, DIRECT 0.1 mg/dL (0.0-0.2); BILIRUBIN,INDIRECT 0.1 mg/dL (0.0-0.9); BILIRUBIN,TOTAL 0.2 mg/dL (0.2-2.0); CALCIUM SERUM 8.6 mg/dL (8.4-10.2); CREATININE SERUM 0.8 mg/dL (0.6-1.4); GLOM FILT RATE Estimated 74.2 mL/min (>60); POTASSIUM 3.5 mmol/L (3.5-5.1); PROTEIN TOTAL SERUM 6.8 g/dL (6.0-8.3)
[2017-01-14 21:23] LABS: URINE SOURCE CLEAN CATCH
[2017-01-14 21:29] LABS: URINE APPEARANCE CLEAR; URINE BILIRUBIN NEG (NEG); URINE BLOOD NEG (NEG); URINE COLOR YELLOW; URINE GLUCOSE NEG (NEG); URINE KETONE NEG (NEG); URINE LEUKOCYTE ESTERASE NEG (NEG); URINE NITRATE NEG (NEG); URINE PROTEIN NEG (NEG); URINE SPECIFIC GRAVITY 1.005 (1.003-1.035); URINE UROBILINOGEN 0.2 MG/DL (NEG)
[2017-01-14 21:33] LABS: CULTURE INDICATED? NO
[2017-01-14 22:06] LABS: POC - CKMB 1.4 ng/mL (0.0-7.9); POC - TROPONIN <0.05 ng/mL (<=0.05)
[2017-01-14] MEDS ORDERED: EFFEXOR XR150 MG PO (22:49)
[2017-01-14] MEDS ORDERED: GABAPENTIN300 M2 PO (22:49)
[2017-01-14] MEDS ORDERED: ALPRAZOLAM0.5 MG PO (22:50)
[2017-01-14] MEDS ORDERED: LASIX20 MG PO (22:51)
[2017-01-14] MEDS ORDERED: LOPRESSOR PO (22:51)
[2017-01-14] MEDS ORDERED: POTASSIUM CHLO10 MEQ PO (22:52)
[2017-01-14] MEDS ORDERED: DONEPEZIL HCL10 MG PO (22:54)
[2017-01-14] MEDS ORDERED: MEMANTINE HCL10 MG PO (22:54)
[2017-01-14] MEDS ORDERED: CLONIDINE PO (22:55)
[2017-01-14] MEDS ORDERED: FLOMAX0.4 M1 PO (22:56)
[2017-01-14] MEDS ORDERED: MULTI VITAMIN1 EACH PO (22:58)
[2017-01-14] MEDS ORDERED: CALCIUM 1,0001 EACH PO (22:58)
[2017-01-14] MEDS ORDERED: SIMVASTATIN10 MG PO (22:59)
[2017-01-14] MEDS ORDERED: PROTONIX PO (22:59)
[2017-01-14] MEDS ORDERED: SYMBICORT INH (23:00)
[2017-01-14] MEDS ORDERED: AZELASTINE137 MCG/0. INH (23:02)
[2017-01-15 01:10] LABS: POC - CKMB 1.7 ng/mL (0.0-7.9); POC - TROPONIN <0.05 ng/mL (<=0.05)
[2017-01-15 04:05] LABS: HEMOGLOBIN 11.1 gm/dL (12.0-16.0); MEAN CELL VOLUME 98.8 FL (83-96); MEAN CORPUSCULAR HEMOGLOBIN 33.3 PG (28-34); MEAN CORPUSCULAR HGB CONC 33.8 g/dL (30-36); MEAN PLATELET VOLUME 7.9 FL (6.5-11.5); RED BLOOD COUNT 3.34 X10e (3.90-5.30); RED CELL DISTRIBUTION WIDTH 12.6 % (11.0-15.5); WHITE BLOOD COUNT 5.2 X10e3 (4.0-10.5)
[2017-01-15 04:37] LABS: BUN/CREATININE RATIO 12.85; CALCIUM SERUM 8.5 mg/dL (8.4-10.2); CREATININE SERUM 0.7 mg/dL (0.6-1.4); GLOM FILT RATE Estimated 87.2 mL/min (>60); POTASSIUM 3.5 mmol/L (3.5-5.1)
[2017-01-15 09:12] LABS: THYROID STIMULATING HORMONE 0.99 uIU/ml (0.34-5.60)
[2017-01-15 09:19] LABS: FREE THYROXIN (T4) 1.31 ng/dL (0.58-1.64)
[2017-01-15 09:22] LABS: FOLATE (FOLIC ACID) >23.3 ng/mL (>5.8)
[2017-01-15 09:27] LABS: ARTERIAL BLD GAS O2 SATURATION 98.2 % (90.0-100.0); ARTERIAL BLOOD GAS CARBOXY HB 0.7 %sat (0.0-9.0); ARTERIAL BLOOD GAS HCO3 34.9 mmol/L; ARTERIAL BLOOD GAS MET HB 0.6 %sat (0.0-2.0); ARTERIAL BLOOD GAS PCO2 49.3 mmHg (35.0-45.0); ARTERIAL BLOOD GAS pH 7.457 (7.350-7.450)
[2017-01-15 09:30] LABS: ARTERIAL BLOOD GAS ALLEN TEST N; ARTERIAL BLOOD GAS ART SITE LEFT RADIAL; ARTERIAL BLOOD GAS DELIVERY NASAL CANNULA; ARTERIAL DRAW? YES
[2017-01-16 05:40] LABS: HEMATOCRIT 35.2 % (35.0-45.0); HEMOGLOBIN 11.5 gm/dL (12.0-16.0); MEAN CELL VOLUME 99.7 FL (83-96); MEAN CORPUSCULAR HEMOGLOBIN 32.6 PG (28-34); MEAN CORPUSCULAR HGB CONC 32.7 g/dL (30-36); MEAN PLATELET VOLUME 7.9 FL (6.5-11.5); RED BLOOD COUNT 3.53 X10e (3.90-5.30); RED CELL DISTRIBUTION WIDTH 12.5 % (11.0-15.5); WHITE BLOOD COUNT 5.9 X10e3 (4.0-10.5)
[2017-01-16 06:36] LABS: BUN/CREATININE RATIO 7.14; CREATININE SERUM 0.7 mg/dL (0.6-1.4); GLOM FILT RATE Estimated 87.2 mL/min (>60); MAGNESIUM 1.6 mg/dL (1.6-3.0)
[2017-01-17 05:18] LABS: HEMATOCRIT 33.9 % (35.0-45.0); HEMOGLOBIN 11.1 gm/dL (12.0-16.0); MEAN CELL VOLUME 100.4 FL (83-96); MEAN CORPUSCULAR HEMOGLOBIN 32.8 PG (28-34); MEAN CORPUSCULAR HGB CONC 32.7 g/dL (30-36); MEAN PLATELET VOLUME 8.4 FL (6.5-11.5); RED BLOOD COUNT 3.38 X10e (3.90-5.30); RED CELL DISTRIBUTION WIDTH 12.7 % (11.0-15.5); WHITE BLOOD COUNT 4.8 X10e3 (4.0-10.5)
[2017-01-17 06:08] LABS: CALCIUM SERUM 7.7 mg/dL (8.4-10.2); CREATININE SERUM 0.6 mg/dL (0.6-1.4); GLOM FILT RATE Estimated 91.7 mL/min (>60); MAGNESIUM 2.3 mg/dL (1.6-3.0); POTASSIUM 3.3 mmol/L (3.5-5.1)
[2017-01-18 05:37] LABS: BASOPHIL% 0.6 % (0-2.5); EOSINOPHIL# 0.1 X10e3 (0-0.7); EOSINOPHIL% 2.1 % (0.0-7.0); HEMOGLOBIN 10.9 gm/dL (12.0-16.0); LYMPHOCYTE# 1.1 X10e3 (1.0-3.5); LYMPHOCYTE% 22.6 % (17.0-45.0); MEAN CORPUSCULAR HEMOGLOBIN 32.4 PG (28-34); MEAN PLATELET VOLUME 8.4 FL (6.5-11.5); MONOCYTE# 0.4 X10e3 (0-1.0); MONOCYTE% 7.9 % (3.0-12.0); NEUTROPHIL# 3.3 X10e3 (1.5-7.1); NEUTROPHIL% 66.8 % (40-75); PLATELET COUNT 266 X10e3 (140-420); RED BLOOD COUNT 3.36 X10e (3.90-5.30); RED CELL DISTRIBUTION WIDTH 12.9 % (11.0-15.5); WHITE BLOOD COUNT 4.9 X10e3 (4.0-10.5)
[2017-01-18 05:38] LABS: DIFF IND NO
[2017-01-18 06:04] LABS: CALCIUM SERUM 8.5 mg/dL (8.4-10.2); CREATININE SERUM 0.6 mg/dL (0.6-1.4); GLOM FILT RATE Estimated 91.7 mL/min (>60); POTASSIUM 4.9 mmol/L (3.5-5.1)
[2017-01-19 04:49] LABS: HEMATOCRIT 31.6 % (35.0-45.0); HEMOGLOBIN 10.7 gm/dL (12.0-16.0); MEAN CELL VOLUME 99.7 FL (83-96); MEAN CORPUSCULAR HEMOGLOBIN 33.6 PG (28-34); MEAN CORPUSCULAR HGB CONC 33.7 g/dL (30-36); MEAN PLATELET VOLUME 8.1 FL (6.5-11.5); RED BLOOD COUNT 3.17 X10e (3.90-5.30); RED CELL DISTRIBUTION WIDTH 12.6 % (11.0-15.5); WHITE BLOOD COUNT 3.7 X10e3 (4.0-10.5)
[2017-01-19 05:36] LABS: BUN/CREATININE RATIO 18.57; CALCIUM SERUM 8.4 mg/dL (8.4-10.2); CREATININE SERUM 0.7 mg/dL (0.6-1.4); GLOM FILT RATE Estimated 87.2 mL/min (>60); POTASSIUM 4.2 mmol/L (3.5-5.1)
== END 2017-01-20 13:18 | DRG 391 ==
LOC: CED 20:02 → CEDOF 23:30 → C3A PCU 01-15 00:13
PROVIDERS: Emergency Medicine; Internal Medicine
DX: K57.32 Diverticulitis of large intestine without perforation or abscess without bleeding (principal); G93.41 Metabolic encephalopathy; E11.42 Type 2 diabetes mellitus with diabetic polyneuropathy; F03.90 Unspecified dementia, unspecified severity, without behavioral disturbance, psychotic disturbance, mood disturbance, and anxiety; F05 Delirium due to known physiological condition; N39.0 Urinary tract infection, site not specified; J44.9 Chronic obstructive pulmonary disease, unspecified; I10 Essential (primary) hypertension; R00.0 Tachycardia, unspecified; G47.33 Obstructive sleep apnea (adult) (pediatric); N32.81 Overactive bladder; K58.9 Irritable bowel syndrome, unspecified; M81.0 Age-related osteoporosis without current pathological fracture; I25.10 Atherosclerotic heart disease of native coronary artery without angina pectoris; F32.9 Major depressive disorder, single episode, unspecified; K21.9 Gastro-esophageal reflux disease without esophagitis; F17.210 Nicotine dependence, cigarettes, uncomplicated; Z85.118 Personal history of other malignant neoplasm of bronchus and lung
CPT/HCPCS: 36415; 36600; 51701; 70450; 70553; 71010; 74177; 80048; 80076; 81003; 82140; 82553; 82607; 82746; 82803; 82947; 83605; 83735; 84132; 84439; 84443; 84484; 85025; 85027; 93005; 94760; 97116; 97162; 97166; 97530; 99285; A9577; G8978-GP; G8979-GP; G8987-GO; G8988-GO; G8989-GO; J1650; J1815; J1956; J2405; J3475; Q9967

== ENCOUNTER → 2017-02-10 | Outpatient (CLI) | payer MEDICARE, OTHER ==
[~2017-02-10] MED LIST changes: +AZELASTINE137 MCG/0. INH; +CALCIUM 1,0001 EACH PO; +CLONIDINE PO; +DONEPEZIL HCL10 MG PO; +GABAPENTIN300 M2 PO; +MEMANTINE HCL10 MG PO; +POTASSIUM CHLO10 MEQ PO
--- NOTE | ~2017-02-10 | CT55 ---
[facility] A Service of [facility] RADIOLOGY TEXT RESULTS PATIENT: BASSAM SORIA LOCATION: [facility] : 45 UNIT #: [id number] AGE: [address]: Ryan Soria MD SEX: F ORDER DR: [id number] [place] [id number] O MR#: [id number] Acc #: [id number] NAME: BASSAM SORIA : 1945 SEX: F STUDY DATE/TIME: 02/10/2017 10:29 UNIT: [facility] ROOM: STUDY DESCRIPTION: CT Chest W Con Attending Physician: Ryan Soria M.D. Referring Physician: Ryan Soria M.D. Ordering Physician: Blanca Baumann A.P.R.N. Primary Care Physician: Blanca Baumann A.P.R.N. MEDICAL IMAGING REPORT This report is preliminary unless electronic signature is present. EXAM CT of the chest with contrast INDICATION Lung cancer. This exam is requested for surveillance for metastatic disease. The patient has a history of shortness of breath, COPD and emphysema. On most recent CT from November 20, 2016 patient was noted to have a 7.0 mm nodule within the right lower lobe. This exam is requested for followup. TECHNIQUE Axial CT images were obtained from the thoracic inlet through the dome of the diaphragm following the administration of intravenous contrast material. This CT scan was performed with one or more of the following radiation dose reduction techniques: Automatic exposure control, adjustment of mA and/or kV according to patient size and iterative reconstruction. FINDINGS Previously identified area of consolidation within the left upper lobe is probably not significantly changed when compared to exams dating back to 2016. I measure it at about to 1.7 x 1.0 cm, previously 2.1 x 0.9 cm. Patient is noted to have bilateral fibrotic changes more pronounced on the left particularly in a paramediastinal distribution. The previously identified nodule within the right lower lobe superiorly measures about 1.0 cm. Previously it measured about 7.0 mm but it has a somewhat different configuration on today's exam with a more pleural-based component. This certainly could reflect some gradual enlargement. Given history it should be viewed with suspicion. Potentially PET could be considered for further evaluation although given somewhat ground-glass appearance and small size it may be of limited utility. There is also a bilobed ground-glass infiltrate seen within the left lower lobe which is STS. [facility] A Service of [facility] RADIOLOGY TEXT RESULTS PATIENT: BASSAM SORIA LOCATION: [facility] : 45 UNIT #: [id number] AGE: [address]: Ryan Soria MD SEX: F ORDER DR: stable when compared to the exam from August 2016. This remains indeterminate as well. The thyroid gland is enlarged and heterogeneous, and likely contains a discrete thyroid nodule. On the left this appearance is stable when compared to most recent study. There is a small hiatal hernia. There is no pleural effusion although there is probably some trace pericardial fluid. Thoracic aorta measures within normal size limits. Pleural thickening is seen within the left lung, again reflecting fibrotic change. There are coronary artery calcifications. I do not see any acute abnormalities within the upper abdomen. Patient is suspected to have some cholelithiasis and there is also a right renal cyst. Low attenuation lesion is identified within the left hepatic lobe which is probably a cyst. There is extensive atherosclerotic involvement of the abdominal aorta. Review of bony windows demonstrates osteopenia and old left-sided rib fractures. Patient has undergone prior vertebroplasties at L2 and T8. Patient has sclerosis of T6 which was also present on the prior study and was also present on an exam from August 2016. Patient is again noted have a low-attenuation lesion arising from the superior pole of the spleen which may reflect hemangioma. IMPRESSION 1. A nodule within the superior segment of the right lower lobe does appear larger on today's examination with perhaps a more pleural-based component. Slow interval growth is certainly worrisome given history of malignancy. Potentially PET could be considered, for evaluation but due to somewhat ground-glass appearance as well as relatively small size, it may be of limited utility. It is not amenable to percutaneous sampling at this time due to its small size and ground-glass density. 2. Bilobed ground-glass nodule identified within the left lower lobe is stable when compared to August 2016 but remains indeterminate. Attention to it on subsequent exams is suggested. 3. Stable area of consolidation seen at the left lung apex favored to represent some scarring. 4. Heterogeneous thyroid gland with suspected left thyroid nodule which could be better evaluated with dedicated thyroid ultrasound if not previously performed. 5. Sclerotic appearance to the T6 vertebral body. This has been seen on prior exams and likely reflects treated metastatic disease. Patient is also status post vertebroplasty at T8 and L2. 6. Fibrotic change is seen within both lungs particularly within the left where there is a paramediastinal distribution. I think the appearance is probably not significantly changed when compared to the prior studies. Please see the body of the report for any other additional incidental findings. Dictated by... Nova Azul M.D. [facility] A Service of [facility] RADIOLOGY TEXT RESULTS PATIENT: BASSAM SORIA LOCATION: [facility] : 45 UNIT #: [id number] AGE: [address]: Ryan Soria MD SEX: F ORDER DR: THIS IS AN ELECTRONICALLY VERIFIED REPORT Nova Azul M.D. at 02/11/2017 2:45 PM DANIELLE/maty TD: 02/11/2017 09:15 JOB #: [id number] MEDICAL IMAGING REPORT Page 1 of 1
[2017-02-10 10:20] LABS: POC - CREATININE 0.72 mg/dL (0.44-1.03); POC - GFR >60.0 mL/min (>60)
== END | disposition home or self-care (01) ==
LOC: SCT 01-19 13:00
PROVIDERS: Internal Medicine Hematology
DX: C34.90 Malignant neoplasm of unspecified part of unspecified bronchus or lung (principal); M81.8 Other osteoporosis without current pathological fracture; R91.8 Other nonspecific abnormal finding of lung field; J18.1 Lobar pneumonia, unspecified organism; J98.4 Other disorders of lung
CPT/HCPCS: 71260; 82565; Q9967